=== PATIENT | female | born 1970 | race Caucasian/White ===

== ENCOUNTER 2024-08-11 14:10 | Outpatient (CLI) | payer MEDICAID, SELFPAY ==
[2024-08-11 08:47] LABS: Abs Immature Grans 0.01 10^3/uL (0.0-0.06); Absolute Basophil Count 0.02 10^3/uL (0.0-0.2); Absolute Eosinophil Count 0.09 10^3/uL (0.0-0.7); Absolute Lymphocyte Count 1.57 10^3/uL (1.2-3.4); Absolute Monocyte Count 0.48 10^3/uL (0.1-0.8); Absolute Neutrophil Count 3.17 10^3/uL (1.2-6.7); Basophils % 0.4 %; Eosinophils % 1.7 %; HGB 12.5 g/dL (11.2-15.7); Immature Grans % 0.2 %; Lymphocytes % 29.4 %; MCH 29.4 pg (27.0-33.0); MCHC 32.9 % (32.0-36.0); MCV 89 fL (80-95); MPV 9.3 fL (8.0-11.0); Neutrophils % 59.3 %; Platelet Count 264 10^3/uL (130-400); RBC 4.25 10^6/uL (3.93-5.22); RDW 12.6 % (11.7-14.6); RDW-SD 41.5 fL; WBC 5.34 10^3/uL (4.4-10.8)
[2024-08-11 09:11] LABS: ALT 23 U/L (14-59); AST 18 U/L (15-37); Albumin 4.1 g/dL (3.4-5.0); Alkaline Phosphatase 74 U/L (46-116); BUN 8 mg/dL (7-18); Bilirubin, Total 0.46 mg/dL (0.2-1.0); CREATININE 0.8 mg/dL (0.55-1.02); Calcium 9.8 mg/dL (8.5-10.1); Chloride 104 mmol/L (98-107); Estimated GFR 88.05 (mL/min/1.73m2); Glucose 100 mg/dL (74-106); Magnesium 1.9 mg/dL (1.8-2.4); Potassium 4.2 mmol/L (3.5-5.1); Sodium 143 mmol/L (136-145); Total Protein 7.3 g/dL (6.4-8.2)
== END 2024-08-11 14:11 | disposition home or self-care (01) ==
PROVIDERS: Visit Provider Internal Medicine Hematology
DX: C01 Malignant neoplasm of base of tongue (principal)
CPT/HCPCS: 36415; 80053; 83735; 85025

== ENCOUNTER 2024-08-12 18:53 | Outpatient (REF) | payer MEDICAID, SELFPAY ==
[2024-08-12 13:37] LABS: Bilirubin Negative (Negative); Blood Negative (Negative); Clarity Clear (Clear); Glucose Negative (Negative); Ketones Negative (Negative); Leukocyte Esterase Negative (Negative); Nitrite Negative (Negative); Specific Gravity <= 1.005 (1.005-1.025); Urobilinogen 0.2 mg/dL (Up to 0.2); pH 5.5 (5-8)
== END 2024-08-12 18:54 | disposition home or self-care (01) ==
LOC: LBN 18:53
PROVIDERS: Visit Provider Nurse Practitioner
DX: C01 Malignant neoplasm of base of tongue (principal)
CPT/HCPCS: 81003

== ENCOUNTER 2024-08-25 08:05 | Outpatient (RCR) | payer MEDICAID, SELFPAY ==
[2024-08-18 08:50] LABS: Abs Immature Grans 0.02 10^3/uL (0.0-0.06); Absolute Basophil Count 0.03 10^3/uL (0.0-0.2); Absolute Eosinophil Count 0.06 10^3/uL (0.0-0.7); Absolute Lymphocyte Count 1.24 10^3/uL (1.2-3.4); Absolute Monocyte Count 0.55 10^3/uL (0.1-0.8); Basophils % 0.5 %; Eosinophils % 1.1 %; HCT 40.1 % (36.0-46.0); HGB 13.5 g/dL (11.2-15.7); Immature Grans % 0.4 %; Lymphocytes % 21.8 %; MCH 29.3 pg (27.0-33.0); MCHC 33.7 % (32.0-36.0); MCV 87 fL (80-95); MPV 9.8 fL (8.0-11.0); Monocytes % 9.6 %; Neutrophils % 66.6 %; Platelet Count 291 10^3/uL (130-400); RBC 4.61 10^6/uL (3.93-5.22); RDW 12.1 % (11.7-14.6); RDW-SD 38.5 fL
[2024-08-18 08:53] LABS: Bilirubin Negative (Negative); Blood Negative (Negative); Clarity Clear (Clear); Glucose Negative (Negative); Ketones Negative (Negative); Leukocyte Esterase Negative (Negative); Nitrite Negative (Negative); Specific Gravity 1.015 (1.005-1.025); Urobilinogen 0.2 mg/dL (Up to 0.2)
[2024-08-18] MEDS: Normal Saline Flush 10 ML SYR IVP (08:59)
[2024-08-18 09:15] LABS: ALT 24 U/L (14-59); AST 15 U/L (15-37); Albumin 4.1 g/dL (3.4-5.0); Alkaline Phosphatase 79 U/L (46-116); Anion Gap 8.6 mmol/L (3-11); BUN 13 mg/dL (7-18); Bilirubin, Total 0.65 mg/dL (0.2-1.0); CO2 30.4 mmol/L (21.0-32.0); CREATININE 0.9 mg/dL (0.55-1.02); Calcium 9.4 mg/dL (8.5-10.1); Chloride 101 mmol/L (98-107); Estimated GFR 76.44 (mL/min/1.73m2); Glucose 101 mg/dL (74-106); Magnesium 1.9 mg/dL (1.8-2.4); Sodium 140 mmol/L (136-145); Total Protein 7.3 g/dL (6.4-8.2)
[2024-08-25] MEDS: Normal Saline Flush 10 ML SYR IVP (08:24)
[2024-08-25 08:42] LABS: Bilirubin Negative (Negative); Blood Negative (Negative); Clarity Sl Cloudy (Clear); Glucose Negative (Negative); Ketones Negative (Negative); Leukocyte Esterase Negative (Negative); Nitrite Negative (Negative); Specific Gravity 1.015 (1.005-1.025); Urobilinogen 0.2 mg/dL (Up to 0.2); pH 7.5 (5-8)
[2024-08-25 09:07] LABS: Abs Immature Grans 0.01 10^3/uL (0.0-0.06); Absolute Basophil Count 0.02 10^3/uL (0.0-0.2); Absolute Eosinophil Count 0.04 10^3/uL (0.0-0.7); Absolute Lymphocyte Count 0.61 10^3/uL (1.2-3.4); Absolute Monocyte Count 0.44 10^3/uL (0.1-0.8); Absolute Neutrophil Count 4.82 10^3/uL (1.2-6.7); Basophils % 0.3 %; Eosinophils % 0.7 %; HCT 34.6 % (36.0-46.0); HGB 11.8 g/dL (11.2-15.7); Immature Grans % 0.2 %; Lymphocytes % 10.3 %; MCH 29.3 pg (27.0-33.0); MCHC 34.1 % (32.0-36.0); MCV 86 fL (80-95); MPV 10.5 fL (8.0-11.0); Monocytes % 7.4 %; Neutrophils % 81.1 %; Platelet Count 208 10^3/uL (130-400); RBC 4.03 10^6/uL (3.93-5.22); RDW 12.1 % (11.7-14.6); RDW-SD 37.2 fL; WBC 5.94 10^3/uL (4.4-10.8)
[2024-08-25 09:15] LABS: ALT 35 U/L (14-59); AST 18 U/L (15-37); Albumin 3.8 g/dL (3.4-5.0); Alkaline Phosphatase 74 U/L (46-116); Anion Gap 4.5 mmol/L (3-11); BUN 15 mg/dL (7-18); Bilirubin, Total 0.29 mg/dL (0.2-1.0); CO2 30.5 mmol/L (21.0-32.0); CREATININE 0.7 mg/dL (0.55-1.02); Calcium 9.2 mg/dL (8.5-10.1); Chloride 103 mmol/L (98-107); Estimated GFR 103.35 (mL/min/1.73m2); Glucose 80 mg/dL (74-106); Magnesium 1.9 mg/dL (1.8-2.4); Potassium 4.1 mmol/L (3.5-5.1); Sodium 138 mmol/L (136-145); Total Protein 6.8 g/dL (6.4-8.2)
== END 2024-09-05 23:59 | disposition home or self-care (01) ==
LOC: INF 08:05
PROVIDERS: Internal Medicine Hematology; Nurse Practitioner; Visit Provider Internal Medicine Medical Oncology
DX: C01 Malignant neoplasm of base of tongue (principal)
CPT/HCPCS: 36591; 80053; 81003; 83735; 85025

== ENCOUNTER 2024-09-01 02:28 | Outpatient (RCR) | payer MEDICAID, SELFPAY ==
[2024-09-01] MEDS: Normal Saline Flush 10 ML SYR IVP (08:12)
[2024-09-01 08:39] LABS: Abs Immature Grans 0.01 10^3/uL (0.0-0.06); Absolute Basophil Count 0.03 10^3/uL (0.0-0.2); Absolute Eosinophil Count 0.07 10^3/uL (0.0-0.7); Absolute Lymphocyte Count 0.67 10^3/uL (1.2-3.4); Absolute Monocyte Count 0.35 10^3/uL (0.1-0.8); Absolute Neutrophil Count 2.89 10^3/uL (1.2-6.7); Basophils % 0.7 %; Eosinophils % 1.7 %; HCT 35.9 % (36.0-46.0); HGB 12.1 g/dL (11.2-15.7); Immature Grans % 0.2 %; Lymphocytes % 16.7 %; MCH 29.4 pg (27.0-33.0); MCHC 33.7 % (32.0-36.0); MCV 87 fL (80-95); MPV 10.2 fL (8.0-11.0); Monocytes % 8.7 %; Platelet Count 198 10^3/uL (130-400); RBC 4.12 10^6/uL (3.93-5.22); RDW 12.4 % (11.7-14.6); RDW-SD 38.4 fL; WBC 4.02 10^3/uL (4.4-10.8)
[2024-09-01 08:56] LABS: ALT 40 U/L (14-59); AST 15 U/L (15-37); Albumin 3.7 g/dL (3.4-5.0); Alkaline Phosphatase 77 U/L (46-116); Anion Gap 5.3 mmol/L (3-11); BUN 19 mg/dL (7-18); Bilirubin, Total 0.42 mg/dL (0.2-1.0); CO2 32.7 mmol/L (21.0-32.0); CREATININE 0.7 mg/dL (0.55-1.02); Calcium 9.2 mg/dL (8.5-10.1); Chloride 101 mmol/L (98-107); Estimated GFR 103.35 (mL/min/1.73m2); Glucose 92 mg/dL (74-106); Potassium 4.3 mmol/L (3.5-5.1); Sodium 139 mmol/L (136-145); Total Protein 6.9 g/dL (6.4-8.2)
== END 2024-09-05 23:59 | disposition home or self-care (01) ==
LOC: INF 02:28
PROVIDERS: Visit Provider Internal Medicine Hematology
DX: C01 Malignant neoplasm of base of tongue (principal)
CPT/HCPCS: 36591; 80053; 83735; 85025

== ENCOUNTER 2024-09-02 15:03 | Outpatient (REF) | payer MEDICAID, SELFPAY ==
[2024-09-02 16:20] LABS: C Diff PCR Negative (Negative)
== END 2024-09-02 15:04 | disposition home or self-care (01) ==
LOC: LBN 15:03
PROVIDERS: Visit Provider Internal Medicine Hematology
DX: C01 Malignant neoplasm of base of tongue (principal)
CPT/HCPCS: 87493

== ENCOUNTER 2024-09-23 09:50 | Emergency (ER) | payer MEDICAID, SELFPAY ==
[2024-09-23] VITALS (30 sets, daily range): BP systolic 117–137; BP diastolic 66–88; PULSE 98–122; RESP 0–35; TEMP 36.7; O2SAT 94–100
--- NOTE | 2024-09-23 09:45 | RT.EKG_ITS ---
APPROVED REPORT Exam: Resting ECG Reason for Exam: sob/tachycardic Patient Location: E HR:115 bpm ECG Measurements Heart Rate 115 AXIS MD 128 P 64 QRSd 90 QRS 83 QT 311 T 30 QTc 431 Conclusion Sinus tachycardia...rate> 99 No STEMI
--- NOTE | 2024-09-23 10:00 | DI.RAD_ITS ---
Exam(s) XR PORTABLE CHEST AP EXAM: XR PORTABLE CHEST AP CLINICAL HISTORY: SOB TECHNIQUE: 2D digital imaging was performed. COMPARISON: No exams were available for comparison FINDINGS: Port over the right chest. LUNGS: Clear. No pleural abnormality seen. HEART: Normal size. AORTA: Normal diameter. BONES: Unremarkable for age. Soft tissues: Unremarkable. IMPRESSION: No acute findings. DATA REPOSITORY: RADIATION DOSE DELIVERED:
--- NOTE | 2024-09-23 10:06 | ED.GENADUL_ITS ---
Discharge Plan Disposition Patient Disposition: Home Condition: Stable Discharge Details Clinical Impression: Shortness of breath Primary Care Provider: Unknown,Unknown ED Provider: Magdalena Mari Home Meds and New Rx's Prescriptions: New (DME) nebulizer and compressor Device See Rx Instructions .Route Qty: 1 0RF Rx Instructions: As directed Use every 4-6 hours as needed ipratropium-albuterol 0.5 mg-3 mg(2.5 mg base)/3 mL solution for nebulization 3 ml inhalation QID PRN (Reason: shortness of breath or wheezing) Qty: 90 0RF Rx Instructions: The nebulizer every 4-6 hours as needed for shortness of breath or wheezing Continued acetaminophen 325 mg tablet 650 mg PO QID amoxicillin 875 mg tablet 875 mg PO BID Patient Comments: TAKE 1 TABLET BY MOUTH TWICE DAILY Rx Instructions: started 09/16/24 diphenoxylate-atropine 2.5-0.025 mg tablet 1 tab PO TID Patient Comments: TAKE 1 TABLET BY MOUTH THREE TIMES DAILY NEEDED FOR DIARRHEA estradiol 0.5 mg tablet 0.5 mg PO DAILY Patient Comments: TAKE 1 TABLET BY MOUTH ONCE DAILY fluoride (sodium) [PreviDent 5000 Booster Plus] 1.1 % paste 1 applic dental BID Patient Comments: APPLY TO AFFECTED AREA TWICE DAILYNO EATING/DRINKING FOR 30 MIN guaifenesin [Adult Tussin Chest Congestion] 100 mg/5 mL liquid 200 mg PO TID PRN (Reason: cough) lidocaine HCl 2 % solution 5 ml PO Q4H PRN Patient Comments: TAKE 5ML BY MOUTH EVERY 4 HOURS NEEDED FOR PAIN. MIX BENADRYL TO MAALOX TO LIDOCAINE IN 1:1:1 MIXTURE loperamide [Anti-Diarrheal (loperamide)] 2 mg capsule 2 mg PO QID PRN morphine 15 mg tablet 15 - 30 mg PO TID PRN Patient Comments: TAKE 1 TABLET BY MOUTH EVERY 8 HOURS NEEDED FOR SEVERE CANCER RELATED NECK PAIN olanzapine 5 mg tablet 5 mg PO QPM omeprazole 20 mg capsule,delayed release(DR/EC) 20 mg PO DAILY Patient Comments: TAKE 1 CAPSULE BY MOUTH ONCE DAILY ondansetron HCl 8 mg tablet 8 mg PO TID PRN Patient Comments: TAKE 1 TABLET BY MOUTH EVERY 8 HOURS NEEDED FOR NAUSEA polyethylene glycol 3350 [Miralax] 17 gram/dose powder 17 g PO DAILY prochlorperazine maleate 10 mg tablet 10 mg PO Q6H PRN Patient Comments: TAKE 1 TABLET BY MOUTH EVERY 6 HOURS NEEDED FOR NAUSEA sennosides-docusate sodium [Colace 2-In-1] 8.6-50 mg tablet 1 tab-cap PO DAILY Discharge Instructions Instructions: Shortness of Breath, Adult ED Additional Instructions: No evidence for pneumonia or fluid in your lungs on chest x-ray. Negative for COVID flu RSV. CT shows no narrowing in your airway. I did speak with Dr. See with heme oncology at [facility] who recommended albuterol inhaler to go home with you and an albuterol nebulized machine and solution which was ordered. Please take these prescriptions to the pharmacy that she use. Please take your previously prescribed medications. You were given an inhaler here which you may use 1 or 2 puffs every 4-6 hours also as needed. Follow up with primary care provider in 3-5 days. Return to ED sooner if any worsening or concerns. Thank you for allowing us to care for you today. Referrals: [facility] [Outside] - 5 days HPI General Mode of arrival: EMS . Date/Time Provider Initiated Documentation: 09/23/24 09:54 . Limitations to Documentation: no limitations . Information obtained by: patient, RN/MD (Mili MAI at [facility]), RN notes reviewed and old records reviewed . HPI Narrative: 54-year-old female presents to the ER via EMS from the [facility] with a chief complaint of 2 to 4 days of difficulty speaking and loss of voice. She has had 2 days of increased shortness of breath. She has a history of left tongue cancer which she has had 30 treatments of radiation for last radiation treatment was yesterday. She was unable to get her chemotherapy treatment yesterday due to low ANC count. She does see Dr. Milad Staton and Florencia at the oncology department. Currently she is slightly tachycardic with a heart rate of 118, O2 is 99% on room air. She received a duo albuterol nebulizer prior to arrival by EMS. She is alert and oriented. She does have some erythema to her anterior neck and left side of her neck with some blisters from the radiation treatment. Related Data Home Medications ?Medication ?Instructions ?Recorded ?Confirmed acetaminophen 325 mg tablet 650 mg PO QID 09/23/24 09/23/24 amoxicillin 875 mg tablet 875 mg PO BID 09/23/24 09/23/24 diphenoxylate-atropine 2.5 1 tab PO TID 09/23/24 09/23/24 mg-0.025 mg tablet estradiol 0.5 mg tablet 0.5 mg PO DAILY 09/23/24 09/23/24 fluoride (sodium) 1.1 % dental 1 applic dental BID 09/23/24 09/23/24 paste (PreviDent 5000 Booster Plus) guaifenesin 100 mg/5 mL oral 200 mg PO TID PRN cough 09/23/24 09/23/24 liquid (Adult Tussin Chest Congestion) ipratropium 0.5 mg-albuterol 3 mg 3 ml inhalation QID PRN shortness 09/23/24 (2.5 mg base)/3 mL nebulization of breath or wheezing #90 mL soln lidocaine HCl 2 % mucosal solution 5 ml PO Q4H PRN 09/23/24 09/23/24 loperamide 2 mg capsule 2 mg PO QID PRN 09/23/24 09/23/24 (Anti-Diarrheal (loperamide)) morphine 15 mg immediate release 15 - 30 mg PO TID PRN 09/23/24 09/23/24 tablet nebulizer and compressor #1 ea 09/23/24 olanzapine 5 mg tablet 5 mg PO QPM 09/23/24 09/23/24 omeprazole 20 mg capsule,delayed 20 mg PO DAILY 09/23/24 09/23/24 release ondansetron HCl 8 mg tablet 8 mg PO TID PRN 09/23/24 09/23/24 polyethylene glycol 3350 17 17 g PO DAILY 09/23/24 09/23/24 gram/dose oral powder (Miralax) prochlorperazine maleate 10 mg 10 mg PO Q6H PRN 09/23/24 09/23/24 tablet sennosides 8.6 mg-docusate sodium 1 tab-cap PO DAILY 09/23/24 09/23/24 50 mg tablet (Colace 2-In-1) Previous Rx's ?Medication ?Instructions ?Recorded ipratropium 0.5 mg-albuterol 3 mg 3 ml inhalation QID PRN shortness 09/23/24 (2.5 mg base)/3 mL nebulization of breath or wheezing #90 mL soln nebulizer and compressor #1 ea 09/23/24 Allergies Allergy/AdvReac Type Severity Reaction Status Date / Time acetaminophen (From Vicodin) Allergy Intermediate fainting Verified 09/23/24 10:48 hydrocodone (From Vicodin) Allergy Intermediate fainting Verified 09/23/24 10:48 General Stated Complaint: SOB CAMPBELL: 3 Exam Narrative Exam Narrative: Constitutional: Alert and oriented x3. Appears stated age. Normal body habitus. Head: Normocephalic, no trauma. Eyes: Pupils PERRL, Red reflex noted, EOM's intact. Eyelids symmetrical without lesions, discharge, or swelling. ENT: Bilateral TM's WNL, External ear normal to inspection, no mastoid TTP, swelling, or erythema, Nasal turbinates WNL, no nasal discharge. Normal dentition, left external erythema and swelling with blistering noted to left side of her neck. Patient does have a hoarse voice. She reports that has been ongoing for the last 4 days. No drooling, no stridor. Resp: Lungs mild right lower quadrant rhonchi and crackles. No wheezes auscultated. Patient did receive a nebulizer prior to arrival. Abdomen: Soft, non-distended, Normoactive bowel sounds all 4 quads. Patient does have a G-tube to the lower quadrant, no surrounding erythema swelling or tenderness. Musculoskeletal: Unable to assess gait. Moves all 4 extremities without difficulty. Skin: Capillary refill less than 2 sec. Neurologic: Cranial nerves II-XII intact. Alert and oriented x 3. Motor: No deficits noted. Sensory: Intact bilaterally all 4 extremities. Hematologic/Lymphatic: No ecchymosis, no lymphadenopathy. Course Vital Signs Vital signs: Vital Signs Temperature 36.7 C 09/23/24 09:53 Pulse 112 H 09/23/24 09:53 Respiratory Rate 22 09/23/24 09:53 Blood Pressure 126/72 09/23/24 09:53 Pulse Oximetry 100 09/23/24 09:53 Temperature 36.7 C 09/23/24 09:53 Temperature Source Oral 09/23/24 09:53 Pulse 112 H 09/23/24 09:53 Respiratory Rate 22 09/23/24 09:53 Blood Pressure 126/72 09/23/24 09:53 Blood Pressure Position Sitting 09/23/24 09:53 Pulse Oximetry 100 09/23/24 09:53 Oxygen Delivery Method Aerosol Mask 09/23/24 09:53 Medical Decision Making 54-year-old female presents to the ER via EMS from the cancer center with a chief complaint of 2 to 4 days of difficulty speaking and loss of voice. She has had 2 days of increased shortness of breath. She has a history of left tongue cancer which she has had 30 treatments of radiation for last radiation treatment was yesterday. She was unable to get her chemotherapy treatment yesterday due to low ANC count. She does see Dr. Milad Lisa and Clarisa at the oncology department. Currently she is slightly tachycardic with a heart rate of 118, O2 is 99% on room air. She received a duo albuterol nebulizer prior to arrival by EMS. She is alert and oriented. She does have some erythema to her anterior neck and left side of her neck with some blisters from the radiation treatment. Workup ordered including lactate, blood cultures CBC CMP troponin, EKG chest x- ray CT head and neck. Differential diagnose include melena to pneumonia, viral illness, inflammation from the treatment. CBC shows a white blood cell count of 1.74 hemoglobin 9.5 hematocrit 28.2 platelets 107 lactate 0.7 sodium 138 potassium 4.0 BUN 26 creatinine 0.6 glucose 141 magnesium slightly slow at 1.7 COVID flu and RSV are pending. Chest x-ray shows no acute abnormality. Patient has remained with a room air sat of 93 to 98% throughout her stay here thus far. She received 125 mg of Solu-Medrol IV upon arrival. CT results returned, airway is patent scattered lymph nodes noted. Head CT within normal limits. Chest x-ray also within normal limits. Will consult with oncology. Expected disposition is discharge. Possible etiology is pain. Patient normally takes morphine. 1311: Transfer center called to speak with oncology team. Expected disposition is discharge. Images requested to be pushed. I reevaluated patient she was sleeping and easily awakens. 1410: Spoke with heme-onc Dr. See regarding patient case in details he verbalized understanding. He does recommend a albuterol ipratropium nebulizer o r inhaler to help with the swelling in her airway. Will give her prescription and discharge home. Will have her follow-up with her primary care and primary oncologist for further evaluation and treatment. Will discuss strict return instructions. Patient has remained hemodynamically stable throughout the remainder of her stay here. Patient given an albuterol inhaler here to go. Prescription for nebulizer machine and solution ordered. Patient verbalized understanding. Patient does have another appointment tomorrow and did discuss encouraged her to discuss this with her heme oncology team. This text was generated using [employer] dictation system, please disregard any oddities of phrase or misspellings. Medical Records Medical records reviewed: Yes I reviewed the patient's medical records. Imaging Data Radiologic Study: Imaging: CT Scan Radiologist's impression: COMPARISON: CT CT HEAD WO from 09/23/2024 FINDINGS: Parotids: Normal. Submandibular glands: Normal. Thyroid gland: Normal. Lymph nodes: There are scattered lymph nodes seen along the level one to level three all measuring less than 8 mm in short axis diameter. Carotids arteries: No significant stenosis or dissection. Vertebral arteries: No significant stenosis or dissection. Soft tissues: The area of the mouth is partially obscured by artifact from dental work. The tonsils and adenoids are unremarkable. The epiglottis and vocal cords are within normal limits. Lungs: Images through both lung apices are unremarkable. Bones: Minimal degenerative changes of the cervical spine. Visualized portions of the brain and orbits: Unremarkable. Sinuses and mastoids: Clear. IMPRESSION: No acute abnormality identified. Area of the mouth is partially obscured by dental artifact Lab Data Lab results reviewed: Yes I reviewed the patient's lab results. Labs: 09/23/24 11:20 Blood Blood Culture - Pending 09/23/24 10:20 Blood Blood Culture - Pending Laboratory Tests Range/Units 09/23/24 09/23/24 10:20 11:01 WBC (4.4-10.8) 10^3/uL 1.74 L* RBC (3.93-5.22) 10^6/uL 3.17 L Hgb (11.2-15.7) g/dL 9.5 L Hct (36.0-46.0) % 28.2 L MCV (80-95) fL 89 MCH (27.0-33.0) pg 30.0 MCHC (32.0-36.0) % 33.7 RDW (11.7-14.6) % 14.1 Plt Count (130-400) 10^3/uL 107 L MPV (8.0-11.0) fL 8.9 Immature Gran % % 0.0 Neutrophils % % 75.8 Lymphocytes % % 12.1 Monocytes % % 10.9 Eosinophils % % 0.6 Basophils % % 0.6 Nucleated RBC % (0.0-0.3) % 0.0 Absolute Neutrophils (1.2-6.7) 10^3/uL 1.32 Absolute Lymphocytes (1.2-3.4) 10^3/uL 0.21 L Absolute Monocytes (0.1-0.8) 10^3/uL 0.19 Absolute Eosinophils (0.0-0.7) 10^3/uL 0.01 Absolute Basophils (0.0-0.2) 10^3/uL 0.01 RBC Morphology Normal PT (9.1-11.1) sec 10.1 INR (0.9-1.1) 1.0 VBG Lactate (<or=2.0) mmol/L 0.7 Sodium (136-145) mmol/L 138 Potassium (3.5-5.1) mmol/L 4.0 Chloride (98-107) mmol/L 102 Carbon Dioxide (21.0-32.0) mmol/L 29.3 Anion Gap (3-11) mmol/L 6.7 BUN (7-18) mg/dL 26 H Creatinine (0.55-1.02) mg/dL 0.6 Est GFR (CKD-EPI 2020) (mL/min/1.73m2) 107.26 Glucose (74-106) mg/dL 141 H Calcium (8.5-10.1) mg/dL 8.6 Magnesium (1.8-2.4) mg/dL 1.7 L Total Bilirubin (0.2-1.0) mg/dL 0.2 AST (15-37) U/L 11 L ALT (14-59) U/L 20 Alkaline Phosphatase (46-116) U/L 68 Troponin I (<or=51) ng/L < 4 Cancelled Total Protein (6.4-8.2) g/dL 6.3 L Albumin (3.4-5.0) g/dL 3.0 L Quality:SDOH Health Related Social Needs: No Data to Display PFSH All Active Problems (Updated 09/23/24 @ 14:17 by Magdalena Mari NP) Shortness of breath (Acute) Social History Smoking/Tobacco Use Status: Never Smoking risk assessment performed?: Yes Alcohol Intake: never Substance use type: does not use
--- NOTE | 2024-09-23 10:08 | DI.CT_ITS ---
Exam(s) CT NECK W EXAM: CT NECK W CLINICAL HISTORY: Hx radiation treatment left neck, SOB, pharyngitis. TECHNIQUE: Imaging Protocol: Axial computed tomography images with coronal and sagittal reformatted images were created and reviewed CONTRAST MATERIAL: Intravenous: Omnipaque 350 Contrast volume:100 ml contrast COMPARISON: CT CT HEAD WO from 09/23/2024 FINDINGS: Parotids: Normal. Submandibular glands: Normal. Thyroid gland: Normal. Lymph nodes: There are scattered lymph nodes seen along the level one to level three all measuring le ss than 8 mm in short axis diameter. Carotids arteries: No significant stenosis or dissection. Vertebral arteries: No significant stenosis or dissection. Soft tissues: The area of the mouth is partially obscured by artifact from dental work. The tonsils and adenoids are unremarkable. The epiglottis and vocal cords are within normal limits. Lungs: Images through both lung apices are unremarkable. Bones: Minimal degenerative changes of the cervical spine. Visualized portions of the brain and orbits: Unremarkable. Sinuses and mastoids: Clear. IMPRESSION: No acute abnormality identified. Area of the mouth is partially obscured by dental artifact. RADIATION DOSE DELIVERED: 1,045.07mGy.cm Total DLP DATA REPOSITORY: All CT scans at this facility are submitted to the National Radiology Data Registry (NRDR) Dose Index Registry (DIR) with the [employer] (A[employer]). RADIATION OPTIMIZATION: All CT scans at this facility use at least one of these dose optimization te chniques: automated exposure control; mA and/or kV adjustment per patient size (includes targeted exa ms where dose is matched to clinical indication); or iterative reconstruction.
[2024-09-23 10:30] LABS: Lactate 0.7 mmol/L (<or=2.0)
--- NOTE | 2024-09-23 10:31 | NUR.NOTE ---
Patient port was accessed by cancer center yesterday. Labs and culture drawn this am
[2024-09-23 10:34] LABS: Absolute Basophil Count 0.01 10^3/uL (0.0-0.2); Absolute Eosinophil Count 0.01 10^3/uL (0.0-0.7); Absolute Lymphocyte Count 0.21 10^3/uL (1.2-3.4); Absolute Monocyte Count 0.19 10^3/uL (0.1-0.8); Absolute Neutrophil Count 1.32 10^3/uL (1.2-6.7); Basophils % 0.6 %; Eosinophils % 0.6 %; HCT 28.2 % (36.0-46.0); HGB 9.5 g/dL (11.2-15.7); Lymphocytes % 12.1 %; MCHC 33.7 % (32.0-36.0); MCV 89 fL (80-95); MPV 8.9 fL (8.0-11.0); Monocytes % 10.9 %; Neutrophils % 75.8 %; Platelet Count 107 10^3/uL (130-400); RBC 3.17 10^6/uL (3.93-5.22); RDW 14.1 % (11.7-14.6); RDW-SD 42.8 fL
[2024-09-23] MEDS: methylPREDNISolone SUCC 125 MG VIAL IVP (10:35)
[2024-09-23 10:43] LABS: Prothrombin Time 10.1 sec (9.1-11.1)
--- NOTE | 2024-09-23 10:45 | DI.CT_ITS ---
Exam(s) CT HEAD WO EXAM: CT HEAD WO CLINICAL HISTORY: SOB, oral CA. TECHNIQUE: Imaging Protocol: Axial computed tomography images with coronal and sagittal reformatted images were created and reviewed COMPARISON: CT CT NECK W from 09/23/2024 FINDINGS: Ventricles and Extra axial spaces: Normal in size and morphology for the patient's age. Hemorrhage: None. Cerebral parenchyma: No evidence of acute infarct or mass. Mild areas of low attenuation in the whi te matter which could reflect chronic microvascular changes. Midline shift: None. Brainstem/Cerebellum: Normal. Calvarium: Normal. Visualized Paranasal sinuses:Clear. Mastoids: Clear. Soft Tissues: Unremarkable. ORBITS: Unremarkable. PITUITARY: Not enlarged. IMPRESSION: No acute intracranial process. RADIATION DOSE DELIVERED: 1,045.07mGy.cm Total DLP DATA REPOSITORY: All CT scans at this facility are submitted to the National Radiology Data Registry (NRDR) Dose Index Registry (DIR) with the [employer] (A[employer]). RADIATION OPTIMIZATION: All CT scans at this facility use at least one of these dose optimization te chniques: automated exposure control; mA and/or kV adjustment per patient size (includes targeted exa ms where dose is matched to clinical indication); or iterative reconstruction.
[2024-09-23 10:48] LABS: Diff Comment Agrees w/ Instrument; RBC Morphology Normal; WBC 1.74 10^3/uL (4.4-10.8)
[2024-09-23 10:53] LABS: ALT 20 U/L (14-59); AST 11 U/L (15-37); Alkaline Phosphatase 68 U/L (46-116); Anion Gap 6.7 mmol/L (3-11); BUN 26 mg/dL (7-18); Bilirubin, Total 0.2 mg/dL (0.2-1.0); CO2 29.3 mmol/L (21.0-32.0); CREATININE 0.6 mg/dL (0.55-1.02); Calcium 8.6 mg/dL (8.5-10.1); Chloride 102 mmol/L (98-107); Estimated GFR 107.26 (mL/min/1.73m2); Glucose 141 mg/dL (74-106); Magnesium 1.7 mg/dL (1.8-2.4); Sodium 138 mmol/L (136-145); Total Protein 6.3 g/dL (6.4-8.2)
[2024-09-23 10:55] LABS: Troponin I < 4 ng/L (<or=51)
[2024-09-23] MEDS: Omnipaque 350 MG/ML 100 ML BTL IJ (11:27)
[2024-09-23] MEDS: Normal Saline - Diluent 50 ML VIAL IJ (11:46)
[2024-09-23 13:17] LABS: COVID-19 PCR Negative (Negative); Influenza A PCR Negative (Negative); Influenza B PCR Negative (Negative); RSV PCR Negative (Negative)
[2024-09-23 13:18] LABS: Source Nasopharynx
[2024-09-23] MEDS: MORPHine 10 MG/ML VIAL 2 MG IVP (13:55)
[2024-09-23] MEDS: Albuterol HFA 8 GM 60 PUFF INH IH (14:31)
== END 2024-09-23 14:43 | disposition home or self-care (01) ==
PROVIDERS: Emergency Provider Registered Nurse Emergency
DX: R06.02 Shortness of breath (principal); C02.9 Malignant neoplasm of tongue, unspecified; Z92.21 Personal history of antineoplastic chemotherapy; Z92.3 Personal history of irradiation
CPT/HCPCS: 36415; 70491; 80053; 87040; 87637; 93005; 96374; 96375; 99285; 70450; 71045; 83605; 83735; 84484; 85025; 85610; 93010; J2270; J2919; J3490

== ENCOUNTER 2024-10-06 01:32 | Outpatient (RCR) | payer MEDICAID, SELFPAY ==
[2024-09-08] MEDS: Normal Saline Flush 10 ML SYR IVP (08:13)
[2024-09-08 08:18] LABS: Absolute Eosinophil Count 0.03 10^3/uL (0.0-0.7); HCT 33.9 % (36.0-46.0); HGB 11.6 g/dL (11.2-15.7); MCH 29.6 pg (27.0-33.0); MCHC 34.2 % (32.0-36.0); MCV 87 fL (80-95); MPV 9.5 fL (8.0-11.0); Platelet Count 148 10^3/uL (130-400); RBC 3.92 10^6/uL (3.93-5.22); RDW-SD 38.4 fL; WBC 2.93 10^3/uL (4.4-10.8)
[2024-09-08 08:35] LABS: ALT 32 U/L (14-59); AST 16 U/L (15-37); Albumin 3.6 g/dL (3.4-5.0); Alkaline Phosphatase 70 U/L (46-116); Anion Gap 6.4 mmol/L (3-11); BUN 19 mg/dL (7-18); Bilirubin, Total 0.35 mg/dL (0.2-1.0); CO2 30.6 mmol/L (21.0-32.0); CREATININE 0.6 mg/dL (0.55-1.02); Calcium 9.2 mg/dL (8.5-10.1); Chloride 103 mmol/L (98-107); Estimated GFR 107.26 (mL/min/1.73m2); Glucose 91 mg/dL (74-106); Magnesium 2.1 mg/dL (1.8-2.4); Potassium 4.5 mmol/L (3.5-5.1); Sodium 140 mmol/L (136-145); Total Protein 6.7 g/dL (6.4-8.2)
[2024-09-08 08:40] LABS: Absolute Lymphocyte Count 0.64 10^3/uL (1.2-3.4); Absolute Monocyte Count 0.21 10^3/uL (0.1-0.8); Absolute Neutrophil Count 2.05 10^3/uL (1.2-6.7); Atypical Lymphocytes % 1 %; Diff Comment Manual Differential; RBC Morphology Normal
[2024-09-15] MEDS: Normal Saline Flush 10 ML SYR IVP (09:51)
[2024-09-15 09:55] LABS: Absolute Basophil Count 0.02 10^3/uL (0.0-0.2); Absolute Eosinophil Count 0.02 10^3/uL (0.0-0.7); Absolute Lymphocyte Count 0.31 10^3/uL (1.2-3.4); Absolute Monocyte Count 0.28 10^3/uL (0.1-0.8); Absolute Neutrophil Count 2.14 10^3/uL (1.2-6.7); Basophils % 0.7 %; Eosinophils % 0.7 %; HCT 32.1 % (36.0-46.0); HGB 10.8 g/dL (11.2-15.7); Lymphocytes % 11.2 %; MCH 29.8 pg (27.0-33.0); MCHC 33.6 % (32.0-36.0); MCV 88 fL (80-95); MPV 8.9 fL (8.0-11.0); Monocytes % 10.1 %; Neutrophils % 77.3 %; Platelet Count 134 10^3/uL (130-400); RBC 3.63 10^6/uL (3.93-5.22); RDW 13.5 % (11.7-14.6); RDW-SD 40.5 fL; WBC 2.77 10^3/uL (4.4-10.8)
[2024-09-15 10:15] LABS: ALT 28 U/L (14-59); AST 10 U/L (15-37); Albumin 3.4 g/dL (3.4-5.0); Alkaline Phosphatase 73 U/L (46-116); Anion Gap 5.6 mmol/L (3-11); BUN 27 mg/dL (7-18); Bilirubin, Total 0.2 mg/dL (0.2-1.0); CO2 30.4 mmol/L (21.0-32.0); CREATININE 0.6 mg/dL (0.55-1.02); Calcium 8.7 mg/dL (8.5-10.1); Chloride 105 mmol/L (98-107); Estimated GFR 107.26 (mL/min/1.73m2); Glucose 92 mg/dL (74-106); Magnesium 1.8 mg/dL (1.8-2.4); Potassium 4.5 mmol/L (3.5-5.1); Sodium 141 mmol/L (136-145); Total Protein 6.4 g/dL (6.4-8.2)
[2024-09-22 10:57] LABS: Abs Immature Grans 0.01 10^3/uL (0.0-0.06); Absolute Basophil Count 0.01 10^3/uL (0.0-0.2); Absolute Eosinophil Count 0.01 10^3/uL (0.0-0.7); Absolute Lymphocyte Count 0.27 10^3/uL (1.2-3.4); Absolute Neutrophil Count 1.15 10^3/uL (1.2-6.7); Basophils % 0.6 %; Eosinophils % 0.6 %; HCT 30.4 % (36.0-46.0); HGB 10.3 g/dL (11.2-15.7); Immature Grans % 0.6 %; Lymphocytes % 16.4 %; MCH 29.9 pg (27.0-33.0); MCHC 33.9 % (32.0-36.0); MCV 88 fL (80-95); MPV 9.4 fL (8.0-11.0); Monocytes % 12.1 %; Neutrophils % 69.7 %; Platelet Count 115 10^3/uL (130-400); RBC 3.45 10^6/uL (3.93-5.22); RDW-SD 41.3 fL
[2024-09-22] MEDS: Normal Saline Flush 10 ML SYR IVP (11:01)
[2024-09-22 11:10] LABS: ALT 20 U/L (14-59); AST 10 U/L (15-37); Albumin 3.4 g/dL (3.4-5.0); Alkaline Phosphatase 72 U/L (46-116); Anion Gap 4.6 mmol/L (3-11); BUN 31 mg/dL (7-18); Bilirubin, Total 0.3 mg/dL (0.2-1.0); CO2 34.4 mmol/L (21.0-32.0); CREATININE 0.7 mg/dL (0.55-1.02); Chloride 100 mmol/L (98-107); Estimated GFR 103.35 (mL/min/1.73m2); Glucose 106 mg/dL (74-106); Sodium 139 mmol/L (136-145); Total Protein 6.7 g/dL (6.4-8.2)
[2024-09-22 11:13] LABS: WBC 1.65 10^3/uL (4.4-10.8)
[2024-10-06 09:04] LABS: Abs Immature Grans 0.02 10^3/uL (0.0-0.06); Absolute Monocyte Count 0.37 10^3/uL (0.1-0.8); MCV 91 fL (80-95)
[2024-10-06 09:05] LABS: Absolute Basophil Count 0.01 10^3/uL (0.0-0.2); Absolute Eosinophil Count 0.02 10^3/uL (0.0-0.7); Absolute Lymphocyte Count 0.21 10^3/uL (1.2-3.4); Absolute Neutrophil Count 0.88 10^3/uL (1.2-6.7); Basophils % 0.7 %; Eosinophils % 1.3 %; HCT 24.2 % (36.0-46.0); HGB 8.3 g/dL (11.2-15.7); Immature Grans % 1.3 %; Lymphocytes % 13.9 %; MCH 31.1 pg (27.0-33.0); MCHC 34.3 % (32.0-36.0); MPV 9.4 fL (8.0-11.0); Monocytes % 24.5 %; Neutrophils % 58.3 %; Platelet Count 134 10^3/uL (130-400); RBC 2.67 10^6/uL (3.93-5.22); RDW 16.1 % (11.7-14.6)
[2024-10-06] MEDS: Normal Saline Flush 10 ML SYR IVP (09:05)
[2024-10-06 09:18] LABS: ALT 18 U/L (14-59); AST 11 U/L (15-37); Alkaline Phosphatase 66 U/L (46-116); Anion Gap 3.9 mmol/L (3-11); BUN 23 mg/dL (7-18); Bilirubin, Total 0.2 mg/dL (0.2-1.0); CO2 32.1 mmol/L (21.0-32.0); CREATININE 0.6 mg/dL (0.55-1.02); Calcium 8.7 mg/dL (8.5-10.1); Chloride 105 mmol/L (98-107); Estimated GFR 107.26 (mL/min/1.73m2); Glucose 80 mg/dL (74-106); Potassium 4.1 mmol/L (3.5-5.1); Sodium 141 mmol/L (136-145); Total Protein 6.1 g/dL (6.4-8.2)
[2024-10-06 09:26] LABS: Diff Comment Diff Reviewed; RBC Morphology Normal
[2024-10-06 09:27] LABS: WBC 1.51 10^3/uL (4.4-10.8)
== END 2024-10-06 23:59 | disposition home or self-care (01) ==
LOC: INF 01:32
PROVIDERS: Visit Provider Internal Medicine Hematology
DX: C01 Malignant neoplasm of base of tongue (principal)
CPT/HCPCS: 36591; 80053; 83735; 85025

== ENCOUNTER 2024-11-03 00:24 | Outpatient (RCR) | payer MEDICAID, SELFPAY ==
[2024-10-13] MEDS: Normal Saline Flush 10 ML SYR IVP (08:51)
[2024-10-13 08:55] LABS: Abs Immature Grans 0.01 10^3/uL (0.0-0.06); Absolute Basophil Count 0.02 10^3/uL (0.0-0.2); Absolute Eosinophil Count 0.02 10^3/uL (0.0-0.7); Absolute Monocyte Count 0.38 10^3/uL (0.1-0.8); Absolute Neutrophil Count 2.18 10^3/uL (1.2-6.7); Basophils % 0.7 %; Eosinophils % 0.7 %; HCT 26.3 % (36.0-46.0); HGB 8.9 g/dL (11.2-15.7); Immature Grans % 0.3 %; Lymphocytes % 10.3 %; MCH 31.4 pg (27.0-33.0); MCHC 33.8 % (32.0-36.0); MCV 93 fL (80-95); Monocytes % 13.1 %; Neutrophils % 74.9 %; Platelet Count 271 10^3/uL (130-400); RBC 2.83 10^6/uL (3.93-5.22); RDW 17.9 % (11.7-14.6); RDW-SD 58.5 fL; WBC 2.91 10^3/uL (4.4-10.8)
[2024-10-13 09:12] LABS: ALT 19 U/L (14-59); AST 13 U/L (15-37); Albumin 3.2 g/dL (3.4-5.0); Alkaline Phosphatase 65 U/L (46-116); BUN 23 mg/dL (7-18); Bilirubin, Total 0.2 mg/dL (0.2-1.0); CREATININE 0.5 mg/dL (0.55-1.02); Calcium 8.9 mg/dL (8.5-10.1); Chloride 104 mmol/L (98-107); Estimated GFR 112.08 (mL/min/1.73m2); Glucose 105 mg/dL (74-106); Magnesium 1.9 mg/dL (1.8-2.4); Potassium 4.2 mmol/L (3.5-5.1); Sodium 142 mmol/L (136-145); Total Protein 6.3 g/dL (6.4-8.2)
[2024-10-20] MEDS: Normal Saline Flush 10 ML SYR IVP (08:20)
[2024-10-20 08:35] LABS: Abs Immature Grans 0.01 10^3/uL (0.0-0.06); Absolute Basophil Count 0.03 10^3/uL (0.0-0.2); Absolute Eosinophil Count 0.03 10^3/uL (0.0-0.7); Absolute Lymphocyte Count 0.45 10^3/uL (1.2-3.4); Absolute Monocyte Count 0.46 10^3/uL (0.1-0.8); Absolute Neutrophil Count 1.86 10^3/uL (1.2-6.7); Basophils % 1.1 %; Eosinophils % 1.1 %; HCT 30.7 % (36.0-46.0); HGB 10.4 g/dL (11.2-15.7); Immature Grans % 0.4 %; Lymphocytes % 15.8 %; MCH 32.1 pg (27.0-33.0); MCHC 33.9 % (32.0-36.0); MCV 95 fL (80-95); MPV 9.6 fL (8.0-11.0); Monocytes % 16.2 %; Neutrophils % 65.4 %; Platelet Count 298 10^3/uL (130-400); RBC 3.24 10^6/uL (3.93-5.22); RDW 17.8 % (11.7-14.6); RDW-SD 60.1 fL; WBC 2.84 10^3/uL (4.4-10.8)
[2024-10-20 09:00] LABS: ALT 27 U/L (14-59); AST 16 U/L (15-37); Albumin 3.6 g/dL (3.4-5.0); Alkaline Phosphatase 73 U/L (46-116); Anion Gap 4.8 mmol/L (3-11); BUN 19 mg/dL (7-18); Bilirubin, Total 0.3 mg/dL (0.2-1.0); CO2 32.2 mmol/L (21.0-32.0); CREATININE 0.7 mg/dL (0.55-1.02); Calcium 9.4 mg/dL (8.5-10.1); Chloride 104 mmol/L (98-107); Estimated GFR 103.35 (mL/min/1.73m2); Glucose 91 mg/dL (74-106); Magnesium 1.9 mg/dL (1.8-2.4); Potassium 4.4 mmol/L (3.5-5.1); Sodium 141 mmol/L (136-145); Total Protein 6.9 g/dL (6.4-8.2)
[2024-10-27] MEDS: Normal Saline Flush 10 ML SYR IVP (10:45)
[2024-10-27 11:04] LABS: Abs Immature Grans 0.02 10^3/uL (0.0-0.06); Absolute Basophil Count 0.02 10^3/uL (0.0-0.2); Absolute Eosinophil Count 0.07 10^3/uL (0.0-0.7); Absolute Lymphocyte Count 0.49 10^3/uL (1.2-3.4); Absolute Monocyte Count 0.61 10^3/uL (0.1-0.8); Absolute Neutrophil Count 2.97 10^3/uL (1.2-6.7); Basophils % 0.5 %; Eosinophils % 1.7 %; HCT 30.1 % (36.0-46.0); HGB 9.9 g/dL (11.2-15.7); Immature Grans % 0.5 %; Lymphocytes % 11.7 %; MCH 31.6 pg (27.0-33.0); MCHC 32.9 % (32.0-36.0); MCV 96 fL (80-95); MPV 10.2 fL (8.0-11.0); Monocytes % 14.6 %; Platelet Count 241 10^3/uL (130-400); RBC 3.13 10^6/uL (3.93-5.22); RDW 17.1 % (11.7-14.6); RDW-SD 58.7 fL; WBC 4.19 10^3/uL (4.4-10.8)
[2024-10-27 11:19] LABS: ALT 22 U/L (14-59); AST 11 U/L (15-37); Albumin 3.6 g/dL (3.4-5.0); Alkaline Phosphatase 70 U/L (46-116); Anion Gap 4.6 mmol/L (3-11); BUN 26 mg/dL (7-18); Bilirubin, Total 0.3 mg/dL (0.2-1.0); CO2 31.4 mmol/L (21.0-32.0); CREATININE 0.6 mg/dL (0.55-1.02); Calcium 9.3 mg/dL (8.5-10.1); Chloride 105 mmol/L (98-107); Estimated GFR 107.26 (mL/min/1.73m2); Glucose 90 mg/dL (74-106); Magnesium 1.9 mg/dL (1.8-2.4); Sodium 141 mmol/L (136-145); Total Protein 6.6 g/dL (6.4-8.2)
[2024-11-03] MEDS: Normal Saline Flush 10 ML SYR IVP (08:12)
[2024-11-03 08:29] LABS: Abs Immature Grans 0.01 10^3/uL (0.0-0.06); Absolute Basophil Count 0.02 10^3/uL (0.0-0.2); Absolute Eosinophil Count 0.09 10^3/uL (0.0-0.7); Absolute Lymphocyte Count 0.44 10^3/uL (1.2-3.4); Absolute Monocyte Count 0.57 10^3/uL (0.1-0.8); Absolute Neutrophil Count 2.76 10^3/uL (1.2-6.7); Basophils % 0.5 %; Eosinophils % 2.3 %; HCT 30.1 % (36.0-46.0); HGB 10.2 g/dL (11.2-15.7); Immature Grans % 0.3 %; Lymphocytes % 11.3 %; MCH 31.9 pg (27.0-33.0); MCHC 33.9 % (32.0-36.0); MCV 94 fL (80-95); MPV 10.8 fL (8.0-11.0); Monocytes % 14.7 %; Neutrophils % 70.9 %; Platelet Count 195 10^3/uL (130-400); RDW 15.8 % (11.7-14.6); RDW-SD 54.4 fL; WBC 3.89 10^3/uL (4.4-10.8)
[2024-11-03 08:43] LABS: ALT 24 U/L (14-59); AST 12 U/L (15-37); Albumin 3.6 g/dL (3.4-5.0); Alkaline Phosphatase 76 U/L (46-116); Anion Gap 5.5 mmol/L (3-11); BUN 30 mg/dL (7-18); Bilirubin, Total 0.3 mg/dL (0.2-1.0); CO2 32.5 mmol/L (21.0-32.0); CREATININE 0.6 mg/dL (0.55-1.02); Calcium 9.2 mg/dL (8.5-10.1); Chloride 105 mmol/L (98-107); Estimated GFR 107.26 (mL/min/1.73m2); Glucose 93 mg/dL (74-106); Magnesium 1.9 mg/dL (1.8-2.4); Potassium 4.2 mmol/L (3.5-5.1); Sodium 143 mmol/L (136-145); Total Protein 6.6 g/dL (6.4-8.2)
== END 2024-11-05 23:59 | disposition home or self-care (01) ==
LOC: INF 00:24
PROVIDERS: Visit Provider Internal Medicine Hematology
DX: C01 Malignant neoplasm of base of tongue (principal); Z45.2 Encounter for adjustment and management of vascular access device
CPT/HCPCS: 36591; 80053; 83735; 85025

== ENCOUNTER 2024-11-17 03:31 | Outpatient (RCR) | payer MEDICAID, SELFPAY ==
[2024-11-17] MEDS: Normal Saline Flush 10 ML SYR IVP (11:49)
[2024-11-17 12:01] LABS: Abs Immature Grans 0.01 10^3/uL (0.0-0.06); Absolute Basophil Count 0.03 10^3/uL (0.0-0.2); Absolute Eosinophil Count 0.17 10^3/uL (0.0-0.7); Absolute Lymphocyte Count 0.43 10^3/uL (1.2-3.4); Absolute Monocyte Count 0.41 10^3/uL (0.1-0.8); Absolute Neutrophil Count 3.13 10^3/uL (1.2-6.7); Basophils % 0.7 %; Eosinophils % 4.1 %; HCT 33.1 % (36.0-46.0); HGB 11.2 g/dL (11.2-15.7); Immature Grans % 0.2 %; Lymphocytes % 10.3 %; MCH 31.4 pg (27.0-33.0); MCHC 33.8 % (32.0-36.0); MCV 93 fL (80-95); MPV 10.1 fL (8.0-11.0); Monocytes % 9.8 %; Neutrophils % 74.9 %; Platelet Count 204 10^3/uL (130-400); RBC 3.57 10^6/uL (3.93-5.22); RDW 14.1 % (11.7-14.6); RDW-SD 48.4 fL; WBC 4.18 10^3/uL (4.4-10.8)
[2024-11-17 12:16] LABS: ALT 27 U/L (14-59); AST 18 U/L (15-37); Albumin 3.7 g/dL (3.4-5.0); Alkaline Phosphatase 71 U/L (46-116); Anion Gap 2.7 mmol/L (3-11); BUN 25 mg/dL (7-18); Bilirubin, Total 0.3 mg/dL (0.2-1.0); CO2 33.3 mmol/L (21.0-32.0); CREATININE 0.7 mg/dL (0.55-1.02); Calcium 9.1 mg/dL (8.5-10.1); Chloride 104 mmol/L (98-107); Estimated GFR 103.35 (mL/min/1.73m2); Glucose 96 mg/dL (74-106); Magnesium 1.8 mg/dL (1.8-2.4); Potassium 4.2 mmol/L (3.5-5.1); Sodium 140 mmol/L (136-145); Total Protein 6.7 g/dL (6.4-8.2)
== END 2024-12-06 23:59 | disposition home or self-care (01) ==
LOC: INF 03:31
PROVIDERS: Visit Provider Internal Medicine Hematology
DX: C01 Malignant neoplasm of base of tongue (principal); Z45.2 Encounter for adjustment and management of vascular access device
CPT/HCPCS: 36591; 80053; 83735; 85025

== ENCOUNTER 2024-12-08 03:44 | Outpatient (RCR) | payer MEDICAID, SELFPAY ==
[2024-12-08 09:38] LABS: Abs Immature Grans 0.01 10^3/uL (0.0-0.06); Absolute Basophil Count 0.02 10^3/uL (0.0-0.2); Absolute Eosinophil Count 0.09 10^3/uL (0.0-0.7); Absolute Lymphocyte Count 0.52 10^3/uL (1.2-3.4); Absolute Monocyte Count 0.25 10^3/uL (0.1-0.8); Absolute Neutrophil Count 3.17 10^3/uL (1.2-6.7); Basophils % 0.5 %; Eosinophils % 2.2 %; HCT 36.8 % (36.0-46.0); Immature Grans % 0.2 %; Lymphocytes % 12.8 %; MCH 30.5 pg (27.0-33.0); MCHC 32.6 % (32.0-36.0); MCV 94 fL (80-95); MPV 9.6 fL (8.0-11.0); Monocytes % 6.2 %; Neutrophils % 78.1 %; Platelet Count 186 10^3/uL (130-400); RBC 3.93 10^6/uL (3.93-5.22); RDW 12.9 % (11.7-14.6); RDW-SD 44.7 fL; WBC 4.06 10^3/uL (4.4-10.8)
[2024-12-08] MEDS: Normal Saline Flush 10 ML SYR IVP (09:39)
[2024-12-08 10:01] LABS: ALT 19 U/L (14-59); AST 17 U/L (15-37); Albumin 3.6 g/dL (3.4-5.0); Alkaline Phosphatase 75 U/L (46-116); Anion Gap 5.1 mmol/L (3-11); BUN 20 mg/dL (7-18); Bilirubin, Total 0.3 mg/dL (0.2-1.0); CO2 32.9 mmol/L (21.0-32.0); CREATININE 0.6 mg/dL (0.55-1.02); Calcium 8.8 mg/dL (8.5-10.1); Chloride 103 mmol/L (98-107); Estimated GFR 107.26 (mL/min/1.73m2); Glucose 109 mg/dL (74-106); Potassium 4.1 mmol/L (3.5-5.1); Sodium 141 mmol/L (136-145); Total Protein 6.7 g/dL (6.4-8.2)
== END 2025-01-05 23:59 | disposition home or self-care (01) ==
LOC: INF 03:44
PROVIDERS: Visit Provider Internal Medicine Hematology
DX: C01 Malignant neoplasm of base of tongue (principal); Z45.2 Encounter for adjustment and management of vascular access device
CPT/HCPCS: 36591; 80053; 83735; 85025

== ENCOUNTER 2024-12-17 01:57 | Outpatient (CLI) | payer MEDICAID, SELFPAY ==
[2024-12-17] MEDS: Barium Sulfate 700 MG TAB PO (15:24)
[2024-12-17] MEDS: Barium Sulfate 81% w/w for Oral Suspension 148 GM BTL PO (15:26)
[2024-12-17] MEDS: Barium Sulfate Oral Paste 40% W/V 230 ML TUBE PO (15:28)
--- NOTE | 2024-12-17 15:32 | DI.RAD_ITS ---
Exam(s) RF MODIFIED SPEECH BA SWALLOW TECHNIQUE: Modified barium swallow was performed in conjunction with speech pathology. CONTRAST MATERIAL: Oral barium contrast was administered. COMPARISON: No exams were available for comparison FINDINGS: Note that this is not a dedicated esophagram, distal esophagus not evaluated. There is no evidence of aspiration or penetration of thick or thin liquids, barium paste and barium c oated cookie. Speech pathology report to follow. . . . IMPRESSION: No evidence of aspiration or penetration. RADIATION DOSE DELIVERED: adry Cox=98.9 mGy
--- NOTE | 2024-12-17 15:58 | ST.MBS_ITS ---
Date of Service Date of service: 12/17/24 Time of Service: 15:59 Modified Barium Swallow Study Findings: Video fluoroscopic Swallowing Evaluation (VFSE) / Modified Barium Swallow Study (MBSS) Speech Language Pathology Report Patient referred for VFSE/MBSS from Dr. Myers given difficulty tolerating solid foods after completion of chemo-radiation treatment of throat. 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 Presented with throat pain, dysphagia, and neck swelling in fall 2023, completed concurrent chemotherapy and radiation on 10/02/2024. Recovery has been complicated by significant pain, tongue numbness, sensation of throat swelling, pain, dysgeusia, and xerostomia. She had an MRI done recently due to these tongue issues and there were no significant or concerning findings. She was also recently treated for thrush. Followed by [facility]FORMAT[facility] NURSE SPECIALIST throughout treatment and now referred for MBSS given continued difficulties tolerating solid foods, subjectively. IMPRESSIONS: Swallow safety is preserved; swallow efficiency is mildly impaired in the oral phase. Mild oral sensori-motor dysphagia. Overall swallow function appears safe. There is no laryngeal penetration or airway aspiration with thin, thick, or puree/solid textures. Hyo-laryngeal movement and airway closure are good, and she has good preservation of pharyngeal wall movement and good UES opening. There is some mild possible CP hypertension and appearance of mild ?webbing of UES just below level of CP, however, this does not appear to impede bolus flow through the upper esophageal segment. She appears largely with sensori-motor difficulties in the oral phase, resulting in oral holding, guarding, tongue pumping, and difficulty with posterior transit initiation. Once pharyngeal swallow is initiated, movement is good with excellent airway safety and minimal pharyngeal residue. Patient appears to be at low risk for potential aspiration PNA and/or pulmonary compromise and mild risk for malnutrition given significant sensory symptoms with PO intake. Diet modification is indicated; non-oral nutrition is not indicated. Swallow prognosis is good given: Positive prognostic factors: Age, Severity, Motivation, Cognitive status, Negative prognostic factors: Relative dose of Chemotherapy and/or radiation treatment, and pending patient/caregiver training in risk management as outlined, including use of trialed compensatory strategies. RECOMMENDATIONS: Diet Texture Recommendation:? IDDSI LEVEL SOLIDS 7-Regular Solids with moisture added LIQUIDS 0-Thin Liquids MEDICATIONS Whole/as tolerated for oral clearance. Can try in puree, thick liquids (e.g., shakes), or with thin liquids. Diet texture modification is per patient's preference; please adjust diet textures at patient's discretion & collaboration with care team. Do not alter medications (e.g., cut)? without advice from your MD or pharmacist. Risk Management Strategies:? Behavioral reflux precautions, including upright position during + 90 mins after meals. Control risk factors for aspiration pneumonia via (a) thorough oral hygiene & (b) maintaining physical mobility as tolerated PLAN: Treating [facility] NURSE SPECIALIST will continue to follow through [facility] [place] ----- OBJECTIVE Videofluoroscopic Swallow Evaluation (VFSE/MBSS) was conducted in the lateral and [id number] projection by Speech-Language Pathologist, in collaboration with Radiologist, to evaluate oropharyngeal swallow function. Anatomic view under fluoroscopy: see upper esophageal anatomy below PO Barium Contrast Trials Oral barium water-soluble contrast was administered as follows: IDDSI Level 0 Varibar thin liquid (40% w/v) IDDSI Level 2 Varibar nectar thick/mildly thick liquid (40% w/v) IDDSI Level 4 Varibar pudding/pureed/extremely thick (40% w/v) IDDSI Level 7 Regular Solid: 1/2 red cracker coated in 3 mL Varibar pudding 13 mm barium tablet taken with Thin Liquids and then puree solids. MBSImP Component Scores: COMPONENT Scale SCORE 1 Lip closure (0-4) 0 Resulted in no labial escape 2 Hold Position (0-3) 0 Maintained a cohesive bolus between tongue to palatal seal 3 Bolus Preparation (0-4) 0 Resulted in timely and efficient chewing and mashing 4 Bolus Transport (0-4) 3 Was with repetitive/disorganized motion of the tongue 5 Oral Residue (0-4) 1 Was a trace, lining oral structures 6 Swallow Initiation (0-4) 1 Occurred when the bolus head was in valleculae 7 Soft Palate Elevation (0-4) 0 Resulted in no bolus between soft palate and the pharyngeal wall 8 Laryngeal Elevation (0-3) 0 Demonstrated complete superior movement of thyroid cartilage with complete approximation of arytenoids to epiglottic petiole 9 Anterior Hyoid Motion (0-2) 0 Demonstrated complete anterior movement 10 Epiglottic Movement (0-2) 0 Resulted in complete inversion 11 Laryngeal Closure (0-2) 0 Was complete with no air or contrast in laryngeal vestibule 12 Pharyngeal Stripping Wave (0-2) 0 Was present and complete 13 Pharyngeal Contraction (0-3) 0 Was complete 14 PES Opening (0-3) 1 Demonstrated partial distension/partial duration, with partial obstruction of flow 15 Tongue Base Retraction (0-4) 1 Allowed a trace column of contrast or air between tongue base and pharyngeal wall 16 Pharyngeal Residue (0-4) 1 Showed a trace within or on pharyngeal structures 17 Esophageal Clearance (0-4) NA Results: COMPONENT Scale SCORE 1 Oral Score (0-18) 4 2 Pharyngeal Score (0-29) 1 3 Esophageal Score (0-4) 0 Penetration-Aspiration Scale: COMPONENT Scale SCORE 1 Thin liquid (1-8) 1 Contrast did not enter the airway 2 [place] thick (1-8) 1 Contrast did not enter the airway 3 Honey thick (1-8) NA 4 Pudding thick (1-8) 1 Contrast did not enter the airway 5 Cookie (1-8) 1 Contrast did not enter the airway Functional Oral Intake Scale: COMPONENT Scale SCORE 1 Pre-Study (1-7) 3 Tube supplements with consistent oral intake 2 Post-Study (1-7) 6 Total oral intake with no special preparation, but must avoid specific foods or liquid items DIGEST: COMPONENT Scale SCORE 1 Thin Max PAS (1-8) 1 Contrast did not enter the airway 2 [place] Max PAS (1-8) 1 Contrast did not enter the airway 3 Honey Max PAS (1-8) NA 4 Liquid Max PAS (1-8) 1 Maximum PAS Score over all liquid trials 5 Liquid Max Residue (0-3) 0 below 10% 6 Pudding Max PAS (1-8) 1 Contrast did not enter the airway 7 Pudding Max Residue (0-3) 0 below 10% 8 Cracker Max PAS (1-8) 1 Contrast did not enter the airway 9 Cracker Max Residue (0-3) 0 below 10% 10 Frequency if PAS >= 3 (0-3) NA 11 Amount if PAS >= 5 (0-1) NA Results: COMPONENT Scale SCORE 1 SAFETY GRADE (0-4) 0 Safety grade for swallowing based on patterns of aspiration or laryngeal penetration 2 EFFICIENCY GRADE (0-4) 0 Efficiency grade of swallowing based on patterns of pharyngeal residue 3 DIGEST (0-4) 0 Severity grade of pharyngeal dysphagia: 0 - Normal, 1 - Mild, 2 - Moderate, 3 - Severe, 4 - Life threatening 4 Max Exam PAS (1-8) 1 Maximum PAS Score over all bolus trials 5 Max Exam Residue (0-3) 0 Maximum Exam Residue over all bolus trials Observations not captured in quantitative data: Trialed Compensatory Strategies & Outcome: 3 Maneuvers Successful (+) Unsuccessful (-) Postures Successful (+) Unsuccessful (-) 3 second Preparatory Set ? Chin Tuck P osture? ? Cough? ? Posterior Head tilt? Reflexive? Cued? Throat Clear? ? Head Tilt to? Reflexive? Left? Cued? Right? ? Saliva swallow? ? Head Turn/Rotate to? ? Supraglottic Swallow? Left? ? Super-supraglottic Swallow? Right? ? 3 Bolus Modifications Successful (+) Unsuccessful (-) Delivery/Alternating Consistencies ? Follow with Liquid Wash ? Follow with Solid Bolus? Delivery/Via Straw? ? Reduced Volume? ?+/- Reduced Rate of Intake? +/-? Increased Viscosity? + for oral clearance of barium tablet Other:?? ? Upper esophageal anatomical view under fluoroscopy WITH CONTRAST Thank you for allowing us to take part in this patient's care. Please feel free to contact the [facility] Speech Language Pathology Department with any questions/concerns.
== END 2024-12-17 02:17 ==
PROVIDERS: Visit Provider Preventive Medicine Undersea and Hyperbaric Medicine
DX: C01 Malignant neoplasm of base of tongue (principal); R13.11 Dysphagia, oral phase
CPT/HCPCS: 92526; 74221

== ENCOUNTER 2025-02-16 04:29 | Outpatient (CLI) | payer MEDICAID, SELFPAY ==
[2025-02-16 13:30] LABS: Abs Immature Grans 0.01 10^3/uL (0.0-0.06); HCT 36.4 % (36.0-46.0); HGB 12.0 g/dL (11.2-15.7); Immature Grans % 0.3 %; MCH 29.9 pg (27.0-33.0); MCHC 33.0 % (32.0-36.0); MCV 91 fL (80-95); MPV 9.5 fL (8.0-11.0); Platelet Count 193 10^3/uL (130-400); RBC 4.02 10^6/uL (3.93-5.22); RDW 13.5 % (11.7-14.6); RDW-SD 44.5 fL; WBC 3.42 10^3/uL (4.4-10.8)
[2025-02-16 14:08] LABS: ALT 19 U/L (14-59); AST 15 U/L (15-37); Albumin 4.5 g/dL (3.4-5.0); Alkaline Phosphatase 70 U/L (46-116); Anion Gap 6.7 mmol/L (3-11); BUN 21 mg/dL (7-18); Bilirubin, Total 0.5 mg/dL (0.2-1.0); CO2 32.3 mmol/L (21.0-32.0); Calcium 9.6 mg/dL (8.5-10.1); Chloride 100 mmol/L (98-107); Estimated GFR 76.44 (mL/min/1.73m2); Glucose 96 mg/dL (74-106); Magnesium 2.1 mg/dL (1.8-2.4); Potassium 4.0 mmol/L (3.5-5.1); Sodium 139 mmol/L (136-145); TSH 59.28 uIU/mL (0.36-3.74); Total Protein 7.7 g/dL (6.4-8.2)
== END 2025-02-16 04:30 | disposition home or self-care (01) ==
LOC: LBO 04:30
PROVIDERS: Visit Provider Internal Medicine Hematology
DX: C01 Malignant neoplasm of base of tongue (principal); Z13.89 Encounter for screening for other disorder
CPT/HCPCS: 36415; 80053; 83735; 84439; 84443; 85025

== ENCOUNTER 2025-03-16 10:54 | Outpatient (CLI) | payer MEDICAID, SELFPAY ==
[2025-03-16 09:00] LABS: Abs Immature Grans 0.00 10^3/uL (0.0-0.06); HCT 36.1 % (36.0-46.0); HGB 11.9 g/dL (11.2-15.7); Immature Grans % 0.0 %; MCH 30.3 pg (27.0-33.0); MCHC 33.0 % (32.0-36.0); MCV 92 fL (80-95); MPV 9.9 fL (8.0-11.0); Platelet Count 185 10^3/uL (130-400); RBC 3.93 10^6/uL (3.93-5.22); RDW 13.5 % (11.7-14.6); RDW-SD 46.1 fL; WBC 2.92 10^3/uL (4.4-10.8)
[2025-03-16 10:06] LABS: ALT 16 U/L (14-59); AST 15 U/L (15-37); Albumin 4.2 g/dL (3.4-5.0); Alkaline Phosphatase 59 U/L (46-116); Anion Gap 6.0 mmol/L (3-11); BUN 24 mg/dL (7-18); Bilirubin, Total 0.5 mg/dL (0.2-1.0); CO2 33.0 mmol/L (21.0-32.0); Calcium 9.7 mg/dL (8.5-10.1); Chloride 104 mmol/L (98-107); Estimated GFR 87.50 (mL/min/1.73m2); Glucose 90 mg/dL (74-106); Magnesium 2.2 mg/dL (1.8-2.4); Potassium 3.9 mmol/L (3.5-5.1); Sodium 143 mmol/L (136-145); TSH 22.12 uIU/mL (0.36-3.74); Total Protein 7.2 g/dL (6.4-8.2)
== END 2025-03-16 10:55 | disposition home or self-care (01) ==
LOC: LBO 10:55
PROVIDERS: Visit Provider Internal Medicine Hematology
DX: C01 Malignant neoplasm of base of tongue (principal)
CPT/HCPCS: 36415; 80053; 83735; 84439; 84443; 85025

== ENCOUNTER 2025-03-30 07:33 | Outpatient (CLI) | payer MEDICAID, SELFPAY ==
[2025-03-30 08:34] LABS: Abs Immature Grans 0.00 10^3/uL (0.0-0.06); HCT 38.0 % (36.0-46.0); HGB 12.6 g/dL (11.2-15.7); Immature Grans % 0.0 %; MCH 30.7 pg (27.0-33.0); MCHC 33.2 % (32.0-36.0); MCV 93 fL (80-95); MPV 9.6 fL (8.0-11.0); Platelet Count 184 10^3/uL (130-400); RBC 4.10 10^6/uL (3.93-5.22); RDW 13.2 % (11.7-14.6); RDW-SD 45.0 fL; WBC 3.17 10^3/uL (4.4-10.8)
[2025-03-30 09:05] LABS: ALT 19 U/L (14-59); AST 14 U/L (15-37); Albumin 4.4 g/dL (3.4-5.0); Alkaline Phosphatase 60 U/L (46-116); Anion Gap 4.3 mmol/L (3-11); BUN 25 mg/dL (7-18); Bilirubin, Total 0.5 mg/dL (0.2-1.0); CO2 33.7 mmol/L (21.0-32.0); Calcium 10.1 mg/dL (8.5-10.1); Chloride 103 mmol/L (98-107); Estimated GFR 87.50 (mL/min/1.73m2); Glucose 82 mg/dL (74-106); Magnesium 2.2 mg/dL (1.8-2.4); Potassium 3.9 mmol/L (3.5-5.1); Sodium 141 mmol/L (136-145); TSH 9.13 uIU/mL (0.36-3.74); Total Protein 7.5 g/dL (6.4-8.2)
== END 2025-03-30 07:34 | disposition home or self-care (01) ==
LOC: LBO 07:33
PROVIDERS: Visit Provider Internal Medicine Hematology
DX: C01 Malignant neoplasm of base of tongue (principal)
CPT/HCPCS: 36415; 80053; 83735; 84439; 84443; 85025

== ENCOUNTER 2025-05-11 03:48 | Outpatient (CLI) | payer MEDICAID, SELFPAY ==
[2025-05-11 08:35] LABS: Abs Immature Grans 0.00 10^3/uL (0.0-0.06); HCT 37.8 % (36.0-46.0); HGB 12.3 g/dL (11.2-15.7); Immature Grans % 0.0 %; MCH 29.6 pg (27.0-33.0); MCHC 32.5 % (32.0-36.0); MCV 91 fL (80-95); MPV 9.6 fL (8.0-11.0); Platelet Count 173 10^3/uL (130-400); RBC 4.16 10^6/uL (3.93-5.22); RDW 11.7 % (11.7-14.6); RDW-SD 38.6 fL; WBC 2.39 10^3/uL (4.4-10.8)
[2025-05-11 09:12] LABS: ALT 18 U/L (14-59); AST 13 U/L (15-37); Albumin 4.0 g/dL (3.4-5.0); Alkaline Phosphatase 67 U/L (46-116); Anion Gap 6.5 mmol/L (3-11); BUN 14 mg/dL (7-18); Bilirubin, Total 0.4 mg/dL (0.2-1.0); CO2 31.5 mmol/L (21.0-32.0); Calcium 9.4 mg/dL (8.5-10.1); Chloride 103 mmol/L (98-107); Glucose 94 mg/dL (74-106); Magnesium 2.0 mg/dL (1.8-2.4); Potassium 4.5 mmol/L (3.5-5.1); Sodium 141 mmol/L (136-145); Total Protein 7.2 g/dL (6.4-8.2)
== END 2025-05-11 03:49 | disposition home or self-care (01) ==
LOC: LBO 03:48
PROVIDERS: Visit Provider Internal Medicine Hematology
DX: C01 Malignant neoplasm of base of tongue (principal)
CPT/HCPCS: 36415; 80053; 83735; 85025

== ENCOUNTER 2025-06-15 10:03 | Outpatient (CLI) | payer MEDICAID, SELFPAY ==
[2025-06-15 08:45] LABS: Abs Immature Grans 0.00 10^3/uL (0.0-0.06); HCT 38.3 % (36.0-46.0); HGB 12.8 g/dL (11.2-15.7); Immature Grans % 0.0 %; MCH 30.0 pg (27.0-33.0); MCHC 33.4 % (32.0-36.0); MCV 90 fL (80-95); MPV 9.5 fL (8.0-11.0); Platelet Count 182 10^3/uL (130-400); RBC 4.26 10^6/uL (3.93-5.22); RDW 11.9 % (11.7-14.6); RDW-SD 38.7 fL; WBC 3.71 10^3/uL (4.4-10.8)
[2025-06-15 08:56] LABS: Magnesium 1.9 mg/dL (1.6-2.6)
[2025-06-15 08:57] LABS: ALT 11 U/L (10-49); AST 15 U/L (<34); Albumin 4.3 g/dL (3.2-5.0); Alkaline Phosphatase 65 U/L (46-116); Anion Gap 5.9 mmol/L (3-11); BUN 16 mg/dL (9-23); Bilirubin, Total 0.40 mg/dL (0.2-1.2); CO2 32.1 mmol/L (20.0-31.0); Calcium 9.4 mg/dL (8.3-10.6); Chloride 105 mmol/L (98-107); Glucose 79 mg/dL (74-106); Potassium 4.2 mmol/L (3.5-5.1); Sodium 143 mmol/L (136-145); Total Protein 6.7 g/dL (5.7-8.2)
== END 2025-06-15 10:04 | disposition home or self-care (01) ==
LOC: LBO 10:05
PROVIDERS: Visit Provider Internal Medicine Hematology
DX: C01 Malignant neoplasm of base of tongue (principal)
CPT/HCPCS: 36415; 80053; 83735; 85025